=== PATIENT | male | born 1985 | race Caucasian/White ===

== ENCOUNTER 2020-12-30 19:05 | Emergency (ER) | payer OTHER ==
[~2020-12-30] VITALS: Ht 172.7 cm; Wt 94.2 kg
--- NOTE | 2020-12-30 23:10 | REPVR ---
PROCEDURE INFORMATION: Exam: XR Soft Tissue Neck Exam date and time: 12/30/2020 10:09 PM Age: 35 years old Clinical indication: Other: Sensation in throat TECHNIQUE: Imaging protocol: XR of the soft tissues of the neck. COMPARISON: No relevant prior studies available. FINDINGS: Airway: Normal. No abnormal narrowing. Soft tissues: Normal. Normal epiglottis. No radiopaque foreign body. Bones/joints: Unremarkable. IMPRESSION: No radiopaque foreign body. Electronically signed by: Clemente Lua On 12/30/2020 23:09:54 PM
[2020-12-31 01:01] VITALS: BP 122/80
== END 2020-12-31 01:04 | disposition home or self-care (01) ==
LOC: M ED 19:05
DX: R13.10 Dysphagia, unspecified (principal)

== ENCOUNTER → 2021-01-27 | Outpatient (CLI) | payer OTHER ==
[~2021-01-27] MED LIST: E-Z-GAS II EFFERVESCENT PACKET (SODIUM BICARB./CITRIC ACID/SIMETHICONE) As Ordered ONE; E-Z-HD 98% w/w 340GM SUSP BTL As Ordered ONE; E-Z-PAQUE 96% w/w SUSP 176GM BTL As Ordered ONE
--- NOTE | 2021-01-27 21:57 | REP ---
INDICATION: DYSPHAGIA. COMPARISON: None. TECHNIQUE: This procedure was performed under the direct supervision of Dr. Cuellar. Images were reviewed with Dr. Cuellar. Liquid barium and gas producing granules were given in the erect position as well as liquid barium in the prone oblique positions in order to perform a double contrast esophagram examination. A combination of fluoroscopy, spot films and last image hold technology was utilized. 0.5 minutes of fluoro time was utilized for this procedure. FINDINGS: A single view PA chest x-ray is submitted as a clockmaker film. The superior mediastinal structures are midline. The heart size is within normal limits. The lungs are clear. The oral and pharyngeal stages of deglutition are unremarkable. Esophageal transport is prompt and efficient and there is no esophagitis, stricture or mucosal ring. There is a sliding-type hiatal hernia.Gastroesophageal reflux is not demonstrated on this examination. IMPRESSION: There is a sliding-type hiatal hernia. Otherwise unremarkable double-contrast esophagram examination. <Electronically signed by Prabhjot Lewis > 01/27/21 1611 <Electronically signed by Iain Cuellar > 01/27/21 [id number]
== END ==
LOC: M RAD 07:55
PROVIDERS: ATTEND Physician Assistant
DX: R13.10 Dysphagia, unspecified (principal); K44.9 Diaphragmatic hernia without obstruction or gangrene